=== PATIENT | female | born 1990 ===

== ENCOUNTER 2018-06-11 11:44 | Emergency (ER) | payer SELFPAY ==
[2018-06-11 12:04] VITALS: BP 107/70; PULSE 81; RESP 18; TEMP 98.8; O2SAT 99
[2018-06-11] MEDS ORDERED: Dexamethasone 4 mg/1 ml IM STA (12:34)
--- NOTE | 2018-06-11 13:38 | C.PDOC ---
History Of Present Illness 27 y/o female presents to the ED complaining of left-sided back pain. Pain worsens with movement and deep inspiration. Patient reports she was seen at another hospital yesterday, had x-rays done which were negative, and was discharged home with pain medication prescriptions. States she was unable to fill them as she could not go to the pharmacy. Otherwise she denies any numbness , weakness, bowel or bladder incontinence, abdominal pain, or fever. No associated trauma or fall. Time Seen by Provider: 06/11/18 12:03 Chief Complaint (Nursing): Back Pain History Per: Patient History/Exam Limitations: no limitations Onset/Duration Of Symptoms: Days Current Symptoms Are (Timing): Still Present Past Medical History Reviewed: Historical Data, Nursing Documentation, Vital Signs Vital Signs: Last Vital Signs Temp 98.8 F 06/11/18 12:00 Pulse 81 06/11/18 12:00 Resp 18 06/11/18 12:00 BP 107/70 06/11/18 12:00 Pulse Ox 99 06/11/18 13:38 - Medical History PMH: Back Problems Surgical History: No Surg Hx Family History: States: No Known Family Hx - Social History Hx Tobacco Use: No Hx Alcohol Use: No Hx Substance Use: No - Immunization History Hx Tetanus Toxoid Vaccination: No Hx Influenza Vaccination: No Hx Pneumococcal Vaccination: No Review Of Systems Except As Marked, All Systems Reviewed And Found Negative. Constitutional: Negative for: Fever, Chills Gastrointestinal: Negative for: Abdominal Pain Genitourinary: Negative for: Dysuria, Frequency, Incontinence Musculoskeletal: Positive for: Back Pain Neurological: Negative for: Weakness, Numbness, Incoordination Physical Exam - Physical Exam Appears: Non-toxic, No Acute Distress Skin: Normal Color, Warm, No Rash Head: Atraumatic, Normacephalic Eye(s): bilateral: Normal Inspection Oral Mucosa: Moist Neck: Normal ROM, Supple Chest: Symmetrical Cardiovascular: Rhythm Regular, No Murmur Respiratory: Normal Breath Sounds, No Accessory Muscle Use Gastrointestinal/Abdominal: Soft, No Tenderness Back: No Vertebral Tenderness, Paraspinal Tenderness (left paralumbar tenderness ) Extremity: Bilateral: Atraumatic, Normal Color And Temperature, Normal ROM Pulses: Left Dorsalis Pedis: Normal, Right Dorsalis Pedis: Normal Neurological/Psych: Oriented x3, Normal Speech, Normal Motor, Normal Sensation, Other (No focal deficits) ED Course And Treatment O2 Sat by Pulse Oximetry: 99 (RA) Pulse Ox Interpretation: Normal Medical Decision Making Medical Decision Making: Plan: * POC urine preg * Toradol 30 mg IM * Decadron 10 mg IM * Flexeril 10 mg PO Progress/Updates: On reassessment, patient is resting comfortably, with improvement of back pain. Patient remains afebrile, with no bony tenderness, extremity numbness or weakness, or abdominal pain. Patient is ambulatory in the emergency department with no signs of discomfort. Patient was advised to follow up with physician/ clinic in 1-2 days. Disposition - Disposition Referrals: [facility] at [facility] [Outside] Disposition: HOME/ ROUTINE Disposition Time: 13:35 Condition: GOOD Additional Instructions: Follow up with the medical doctor within 1-2 days. Return if worsened. Prescriptions: predniSONE [Prednisone] 10 mg PO BID #10 tab Instructions: Muscle Spasms (DC) Forms: [employer] (Arabic), Work Excuse - Clinical Impression Clinical Impression: Muscle spasm - PA / CLIENT RESOURCE SPECIALIST / Resident Statement MD/DO has reviewed & agrees with the documentation as recorded. - Scribe Statement The provider has reviewed the documentation as recorded by the Scribe (Tamela Del Rio) All medical record entries made by the Scribe were at my direction and personally dictated by me. I have reviewed the chart and agree that the record accurately reflects my personal performance of the history, physical exam, medical decision making, and the department course for this patient. I have also personally directed, reviewed, and agree with the discharge instructions and disposition.
== END 2018-06-11 13:43 | disposition home or self-care (01) ==
LOC: C.ER 11:44
DX: M62.838 Other muscle spasm (principal)
CPT/HCPCS: 96372; 99283; J1100; J1885

== ENCOUNTER 2019-03-20 16:34 | Emergency (ER) | payer OTHER ==
[2019-03-20 16:38] VITALS: BMI 33.7
[2019-03-20 16:43] VITALS: RESP 18; O2SAT 98
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
[2019-03-20 18:03] VITALS: BP 110/72; PULSE 88; TEMP 98.2
== END 2019-03-20 18:03 | disposition home or self-care (01) ==
LOC: C.ER 16:34
DX: S39.012A Strain of muscle, fascia and tendon of lower back, initial encounter (principal); V49.49XA Driver injured in collision with other motor vehicles in traffic accident, initial encounter; Y92.410 Unspecified street and highway as the place of occurrence of the external cause
CPT/HCPCS: 81025; 96372; 99284; J1885